=== PATIENT | male | born 1970 ===

== ENCOUNTER → 2020-07-16 | Outpatient (CLI) | payer BC | LOC: HYPER 08:44 | PROVIDERS: ATTEND Specialist | DX: T24.301A Burn of third degree of unspecified site of right lower limb, except ankle and foot, initial encounter (principal); T24.322A Burn of third degree of left knee, initial encounter; T22.311A Burn of third degree of right forearm, initial encounter; T24.311A Burn of third degree of right thigh, initial encounter; T23.372A Burn of third degree of left wrist, initial encounter; T23.031A Burn of unspecified degree of multiple right fingers (nail), not including thumb, initial encounter; T24.212A Burn of second degree of left thigh, initial encounter; T24.331A Burn of third degree of right lower leg, initial encounter; T31.0 Burns involving less than 10% of body surface; Z87.891 Personal history of nicotine dependence; W86.1XXA Exposure to industrial wiring, appliances and electrical machinery, initial encounter; Y93.89 Activity, other specified; Y92.89 Other specified places as the place of occurrence of the external cause; Y99.8 Other external cause status ==

== ENCOUNTER → 2020-07-23 | Outpatient (CLI) | payer OTHER | LOC: HYPER 09:18 | PROVIDERS: ATTEND Specialist | DX: T24.301D Burn of third degree of unspecified site of right lower limb, except ankle and foot, subsequent encounter (principal); T24.322D Burn of third degree of left knee, subsequent encounter; T22.311D Burn of third degree of right forearm, subsequent encounter; T24.311D Burn of third degree of right thigh, subsequent encounter; T23.37 Burn of third degree of wrist; T23.031D Burn of unspecified degree of multiple right fingers (nail), not including thumb, subsequent encounter; T24.212D Burn of second degree of left thigh, subsequent encounter; T24.331D Burn of third degree of right lower leg, subsequent encounter; T24.312D Burn of third degree of left thigh, subsequent encounter; T31.0 Burns involving less than 10% of body surface; Z87.891 Personal history of nicotine dependence; W86.1XXD Exposure to industrial wiring, appliances and electrical machinery, subsequent encounter ==